=== PATIENT | female | born 1990 | race Caucasian/White ===

== ENCOUNTER 2016-06-01 13:38 | Emergency (ER) | payer OTHER ==
[2016-06-01] MEDS ORDERED: ONDANSETRON 4 MG/2 ML VIAL IVP ONE ×2 (14:00→16:08)
[2016-06-01] MEDS ORDERED: NS 1,000 ML IV ONE ×2 (14:00→15:04)
[2016-06-01] MEDS ORDERED: ONDANSETRON 4 MG/2 ML VIAL ONE (16:01)
[2016-06-01 17:06] LABS: COLOR YELLOW; LEUKOCYTE ESTERASE,URINE NEGATIVE (NEGATIVE); NITRITE,URINE NEGATIVE (NEGATIVE)
--- NOTE | 2016-06-01 17:09 | UCPHY ---
H & P Patient Type: Established Chief Complaint Nursing Narrative: C/o productive cough with yellow sputum x 1 week, nausea and vomiting x 1 day. Unsure of fever. Time Seen by Provider: 06/01/16 14:59 HPI/ROS: This patient complains of URI symptoms associated with vomiting and diarrhea. She explains that starting a week ago she developed initially nasal congestion sore throat with near resolution of the sore throat to mild scratchy discomfort currently. She also has associated intermittent cough and over the past 24 hours developed vomiting and diarrhea. She has vomited handful of times today with ongoing nausea and had loose watery stools starting yesterday that is now improving with only 2 episodes of loose stool today. She felt fatigue and mild lightheadedness today prompting her visit because she felt dehydrated. ROS: No high fevers or chills. No other constitutional symptoms HEENT: No facial pain significant headaches. Neuro: No confusion, stiff neck focal symptoms pulmonary: No pleuritic pain or respiratory distress. Cardiovascular : No chest pain. No lower extremity swelling. GI: No significant abdominal pain despite her other symptoms. : No urinary complaint. She is not have menses due to her control. 10 point ROS is otherwise negative. Source: Patient Exam Limitations: No limitations - Personal History LMP (Females 10-55): Extended Cycle BCP/Inj Current Tetanus Diphtheria and Acellular Pertussis (TDAP): Yes Tetanus Vaccine Date: within 10 years - Medical/Surgical History PMH: Morbid obesity Hx Asthma: No Hx Chronic Respiratory Disease: No Hx Diabetes: No Hx Cardiac Disease: No Hx Renal Disease: No Hx Cirrhosis: No Hx Alcoholism: No Hx HIV/AIDS: No Hx Splenectomy or Spleen Trauma: No Other PMH: tonsils & adenoids - Family History Significant Family History: No pertinent family hx - Social History Smoking Status: Current every day smoker Alcohol Use: None Drug Use: Marijuana (Occasional marijuana last use was 1 month ago.) - Physical Exam Exam: General Appearance: Morbidly obese 25-year-old female Alert, no distress. Eyes: Pupils equal and round no pallor or injection. ENT, Mouth: Mucous membranes dry. Respiratory: There are no retractions, lungs are clear to auscultation. Cardiovascular: Tachycardia with no murmur gallop or rub Gastrointestinal: Hyperactive bowel sounds, soft, nontender Neurological: Alert with no focal deficits Skin: Warm and dry, no rashes. Musculoskeletal: Neck is supple nontender. Extremities are symmetrical, full range of motion. Psychiatric: Mood and affect are normal DIFFERENTIAL DIAGNOSIS: After history and physical exam differential diagnosis was considered for viral gastroenteritis, UTI, rule out Constitutional: Initial Vital Signs Temperature (C) 36.9 C 06/01/16 13:55 Heart Rate 133 H 06/01/16 13:55 Respiratory Rate 18 06/01/16 13:55 Blood Pressure 131/100 H 06/01/16 13:55 O2 Sat (%) 94 06/01/16 13:55 O2 Delivery Mode Room Air Allergies/Adverse Reactions: No Known Allergies Allergy (Verified 06/01/16 13:58) Home Medications: Medication Instructions Recorded Nexplanon 06/01/16 Medical Decision Making ED Course/Re-evaluation: IV normal saline bolus x2 L Zofran IV with resolution of nausea. Urinalysis is normal. Urine is negative Discussion: Patient's findings are most consistent with viral URI complicated by gastroenteritis with dehydration. She improved after treatment here. She has no clinical findings to suggest lower respiratory infection and a benign belly exam currently. I do not think she has pneumonia or appendicitis or other significant acute pathology this time. I counseled her regarding her illness. We ruled out UTI in . She is given appropriate warnings to return for worsening despite treatment plan - Data Points Laboratory Results: 06/01/16 17:00 Urine Color YELLOW Urine Appearance HAZY Urine pH 5.0 (5.0-7.5) Ur Specific [place] 1.025 (1.002-1.030) Urine Protein NEGATIVE (NEGATIVE) Urine Ketones NEGATIVE (NEGATIVE) Urine Blood NEGATIVE (NEGATIVE) Urine Nitrate NEGATIVE (NEGATIVE) Urine Bilirubin NEGATIVE (NEGATIVE) Urine Urobilinogen 0.2 EU (0.2-1.0) Ur Leukocyte Esterase NEGATIVE (NEGATIVE) Ur Culture Indicated? NOT INDICATED (NI) Urine Glucose NEGATIVE (NEGATIVE) Urine Test NEGATIVE Medications Given: Discontinued Medications Sodium Chloride (Ns) 1,000 mls @ 0 mls/hr IV EDNOW ONE PRN Reason: As Directed Stop: 06/01/16 14:01 Last Admin: 06/01/16 14:05 Dose: 1,000 mls Sodium Chloride (Ns) 1,000 mls @ 0 mls/hr IV ONCE ONE PRN Reason: Wide Open Stop: 06/01/16 15:05 Last Admin: 06/01/16 15:30 Dose: 1,000 mls Ondansetron HCl (Zofran) 4 mg IVP EDNOW ONE Stop: 06/01/16 14:01 Last Admin: 06/01/16 14:14 Dose: 4 mg Ondansetron HCl (Zofran) 4 mg IVP EDNOW ONE Stop: 06/01/16 16:09 Last Admin: 06/01/16 16:08 Dose: 4 mg Departure - Departure Disposition: Home, Routine, Self-Care Clinical Impression: Gastroenteritis, Dehydration, Viral URI with cough Condition: Good Instructions: Gastroenteritis (ED) Additional Instructions: Diagnosis: Viral gastroenteritis 2. Dehydration 3. Viral URI with cough Plan: Drink plenty fluids Humidifier Zofran for nausea vomiting as needed Imodium if needed for diarrhea Referrals: SALOME JIMENEZ [Primary Care Provider] - As per Instructions Stand Alone Forms: Work Excuse - PQRS PQRS Measurement: Not applicable
[2016-06-01 17:32] VITALS: BP 151/106; PULSE 115; RESP 18; TEMP 98.6; O2SAT 95
== END 2016-06-01 17:29 | disposition home or self-care (01) ==
LOC: CED 13:38
DX: A08.4 Viral intestinal infection, unspecified (principal); E86.0 Dehydration; J06.9 Acute upper respiratory infection, unspecified; E66.01 Morbid (severe) obesity due to excess calories; Z68.38 Body mass index [BMI] 38.0-38.9, adult; Z72.0 Tobacco use; F12.90 Cannabis use, unspecified, uncomplicated
CPT/HCPCS: 81003-PO; 81025-PO; 96361-PO; 96374-PO; 96376-PO; 99214-PO; G0463-PO; J2405